=== PATIENT | female | born 1980 | race Caucasian/White ===

== ENCOUNTER → 2022-03-24 08:25 | Outpatient (BNVA) | payer OTHER, SELFPAY | PROVIDERS: PCP Internal Medicine; Visit Provider Internal Medicine Endocrinology, Diabetes & Metabolism | DX: E11.65 Type 2 diabetes mellitus with hyperglycemia (principal) | CPT/HCPCS: 82947 ==

== ENCOUNTER 2022-03-26 08:48 | Outpatient (REF) | payer OTHER, SELFPAY ==
[2022-03-26 11:16] LABS: Anion Gap 18 (12-20); Blood Urea Nitrogen 14 mg/dL (9-16); Calcium 9.3 mg/dL (8.4-10.2); Carbon Dioxide 20 mmol/L (22-29); Chloride 100 mmol/L (96-108); Cholesterol 451 mg/dL; Estimated Glomerular Filt Rate > 60; Glucose Random 254 mg/dL (60-115); HDL Cholesterol 41 mg/dL; Potassium 4.5 mmol/L (3.3-5.1); Sodium 133 mmol/L (135-145)
[2022-03-26 11:20] LABS: Triglycerides 1858 mg/dL
[2022-03-26 11:49] LABS: Creatinine Urine 166.83 mg/dL; Microalbum/Creatinine Ratio Ur 93.5 ug/mg cr
== END 2022-03-26 08:49 | disposition home or self-care (01) ==
LOC: HO.10HDL 08:48
PROVIDERS: Visit Provider Internal Medicine Endocrinology, Diabetes & Metabolism
DX: E11.65 Type 2 diabetes mellitus with hyperglycemia (principal)
CPT/HCPCS: 36415; 80048; 80061; 82043

== ENCOUNTER → 2022-04-02 09:32 | Outpatient (BNVA) | payer OTHER, SELFPAY | PROVIDERS: PCP Internal Medicine; Visit Provider Registered Nurse Diabetes Educator | DX: Z13.89 Encounter for screening for other disorder (principal) ==

== ENCOUNTER → 2022-06-23 10:30 | Outpatient (BNVA) | payer OTHER, SELFPAY | PROVIDERS: PCP Internal Medicine; Visit Provider Internal Medicine Endocrinology, Diabetes & Metabolism | DX: E11.65 Type 2 diabetes mellitus with hyperglycemia (principal) | CPT/HCPCS: 82947; 83036 ==

== ENCOUNTER 2022-06-23 11:46 | Outpatient (REF) | payer OTHER, SELFPAY ==
[2022-06-23 13:46] LABS: Cholesterol 246 mg/dL; HDL Cholesterol 70 mg/dL; LDL Cholesterol Calculated 117 mg/dl; Triglycerides 298 mg/dL
== END 2022-06-23 11:47 | disposition home or self-care (01) ==
LOC: HO.10HDL 11:46
PROVIDERS: Visit Provider Internal Medicine Endocrinology, Diabetes & Metabolism
DX: E78.1 Pure hyperglyceridemia (principal); E11.65 Type 2 diabetes mellitus with hyperglycemia
CPT/HCPCS: 36415; 80061

== ENCOUNTER → 2022-07-02 10:03 | Outpatient (BNVA) | payer OTHER, SELFPAY | PROVIDERS: Visit Provider Dietitian, Registered | DX: E11.65 Type 2 diabetes mellitus with hyperglycemia (principal) | CPT/HCPCS: 97802 ==

== ENCOUNTER → 2022-09-01 14:06 | Outpatient (BNVA) | payer OTHER, SELFPAY | PROVIDERS: Visit Provider Dietitian, Registered | DX: E11.65 Type 2 diabetes mellitus with hyperglycemia (principal); Z71.3 Dietary counseling and surveillance | CPT/HCPCS: 97803 ==

== ENCOUNTER → 2022-09-10 10:04 | Outpatient (BNVA) | payer OTHER, SELFPAY | PROVIDERS: Visit Provider Registered Nurse Diabetes Educator ==

== ENCOUNTER 2022-11-09 14:42 | Outpatient (AMB) | payer OTHER, SELFPAY ==
[2022-11-09 14:46] VITALS: BMI 50.3
--- NOTE | 2022-11-09 14:46 | A.OFFVIS_ITS ---
Intake VS Expanded 11/09/22 14:46 Height 5 ft 5 in Weight 302 lb 0.533 oz BMI 50.3 Intake Visit Reasons: T2DM Allergies calamine Allergy (Verified 11/24/22 11:44) Rash environmental Allergy (Uncoded 06/23/22 10:37) rashes Medication List - Last Reconciled 11/09/22 by Olga Masetrs, RD, LDN blood sugar diagnostic (FreeStyle Lite Strips) As directed tests 4 X/day blood-glucose meter (FreeStyle Gratz Lite kit) As directed checks 4 X/day desogestrel-ethinyl estradiol 0.15-0.03 mg (Enskyce) 1 tab PO DAILY gabapentin 300 mg PO TID lancets (FreeStyle Lancets) As directed checks 4 X/day lancets (FreeStyle Lancets) As directed checks 4 X/day losartan 100 mg PO DAILY metformin ER 2,000 mg PO DAILY metoprolol succinate ER 100 mg PO DAILY multivitamin 1 tab PO DAILY semaglutide (Ozempic) 1 mg (0.75 mL) subcut QWEEK venlafaxine ER 225 mg PO DAILY HPI Nutrition Presentation Details Pt presents for MNT follow-up for type 2 diabetes Patient reports doing well, working on meal planning, mindful eating. Patient reports having had some episodes of GI distress in the month September with persistent diarrhea requiring visit to urgent care. Patient reports she is feeling well and eating well today. Noted weight loss of 15 lb since last visit in August. Patient reports most of the weight loss was during that month and assures she is no longer having GI distress and is feeling comfortable. Patient also reports starting ozempic 1 mg/wk about a month ago, takes metfor min ER 2000 mg/d Patient denies vomiting, denies diarrhea Patient reports having 3 meals/day and 2-3 snacks in between Meals may consist of Breakfast : Scrambled eggs 3 with 2 slices bread or bagel, and water Snack: Protein shake (30 g protein Lunch salad with chicken deli meat or a sandwich with tuna and chips Dinner trying to do protein foods in the slow cooker or may ground beef with pasta and non starchy veggies, drinks water Snack: Some ice cream or cereal with milk or yogurt Reports choosing soft protein foods (is a eggs, poultry, cheese, protein shakes), reports about 120 g of protein per day Patient reports keeping hydrated by having water with each meal and snack Most Recent Diabetes Results: Microalb/Creat Ratio 93.5 ug/mg cr 03/26/22 Cholesterol 246 mg/dL 06/23/22 HDL Cholesterol 70 mg/dL 06/23/22 Triglycerides 298 mg/dL 06/23/22 Creatinine 0.82 mg/dL (0.5-1.4) 03/26/22 Blood Urea Nitrogen 14 mg/dL (9-16) 03/26/22 Sodium 133 mmol/L (135-145) L 03/26/22 Potassium 4.5 mmol/L (3.3-5.1) 03/26/22 Chloride 100 mmol/L (96-108) 03/26/22 Carbon Dioxide 20 mmol/L (22-29) L 03/26/22 Calcium 9.3 mg/dL (8.4-10.2) 03/26/22 [facility] Medical History (Updated 06/23/22 @ 10:53 by Harsh Hinojosa MD) High triglycerides Uncontrolled diabetes mellitus with hyperglycemia, without long-term current use of insulin Surgical History History of carpal tunnel release of both wrists Family History Mother Heart problem COPD (chronic obstructive pulmonary disease) Father Stroke Social History Alcohol intake: current Alcohol intake frequency: holidays/special occasions only Alcohol type: beer Patient Tobacco Use Status: Never used Tobacco Assessment & Plan Assessment & Plan (1) Uncontrolled diabetes mellitus with hyperglycemia, without long-term current use of insulin: Code(s): E11.65 - Type 2 diabetes mellitus with hyperglycemia Plan: Educate Pt on reduction , healthy plate method ? Used wt?:? 142? kg(08/2022) 137 kg (10/2022) Est kcal as per MSJ: 2500- 250 = 2250 (40% carb, 30% fat/prot) Est fluid needs: 3500 ml/d (25 ml/kg bw) Rec fiber:? increase to 8-10 g per day and gradually increase to 25 g/d or? as tolerated? Rec Na: < 2000 mg /d Educate patient on:? (R= Reviewed,? V = verbalizes understanding ? N/R= Needs review? ? N/A= not applicable) * Food sources of carbohydrates and serving adequate serving sizes :??R? * Difference between complex carbohydrates and simple carbohydrates, role of fiber:??R? * Differences between fats (MUFA/PUFA/saturated fats, trans fats) and food sources of various fats:?? N/R * Food sources of sodium and salt and? healthy modifications for heart health and kidney health:? N/R * Vitamins and minerals:??? N/R * How to interpret food labels:???R * Healthy Plate method concept:??R? * Physical activity: benefits and precaution: ??R? (basic) * mindful eating strategies?: R ? Patient Instructions: continue working on healthy eating concepts , following healthy plate method Include fiber rich foods, gradually increasing fiber amount from 4 g up to 18 g or as tolerated may recommend monitoring labs for b12 deficiency related to hx of neuropathy in feet and taking metformin Coding Level of Care Code Nutr Indiv Subseq (27363) Diagnoses Uncontrolled diabetes mellitus with hyperglycemia, without long-term current use of insulin E11.65 Time Spent (min) 30
== END 2022-11-09 15:17 | disposition home or self-care (01) ==
PROVIDERS: Visit Provider Dietitian, Registered
DX: E11.65 Type 2 diabetes mellitus with hyperglycemia (principal)

== ENCOUNTER → 2022-11-09 14:42 | Outpatient (BNVA) | payer OTHER, SELFPAY | PROVIDERS: Visit Provider Dietitian, Registered | DX: E11.65 Type 2 diabetes mellitus with hyperglycemia (principal); Z79.84 Long term (current) use of oral hypoglycemic drugs; Z71.3 Dietary counseling and surveillance | CPT/HCPCS: 97803 ==

== ENCOUNTER 2022-11-24 11:34 | Outpatient (AMB) | payer OTHER, SELFPAY ==
[2022-11-24 11:38] VITALS: BP 112/88; PULSE 92; BMI 49.9
--- NOTE | 2022-11-24 11:38 | MHC.OFFVIS ---
Intake Vital Signs 11/24/22 11:38 Height 5 ft 5 in Weight 300 lb 0.786 oz BMI 49.9 BP 112/88 Blood Pressure Location Lt brachial Position Sitting Pulse 92 Pulse Source Pulse Oximeter Intake Visit Reasons: DM Intake Note: Patient present today to follow up on Type Diabetes Mellitus. Last Diabetic Eye exam: March 2022 Last Podiatry Visit: None Random Glucose: 105 mg/dl HgA1C: 6.8% Ice Guard Skating Rink Required: No Accompanied by: Self / Same As Patient Allergies calamine Allergy (Verified 11/24/22 11:44) Rash environmental Allergy (Uncoded 06/23/22 10:37) rashes HPI HPI Comments History of Present Illness Details 42 YO F who is seen in consultation for T2DM at the request of PCP. Initially diagnosed with T2DM in 2018. Not seen endo before Was initially started on treatment with metformin 2000 mg QD. Tried Januvia with no effect . Jardiance but stopped trigs . Mounjaro was not covered . Tried Bydureon and Byetta . Tried Trulicity but had nausea Current regimen metformin 2000 mg XR QD.. Ozempic 1 mg Qwkly Checks sugars 2 times per day. Glucometer download shows average point care 128 with standard deviation of 21. 94% range with 6% hyperglycemia and no hypoglycemia Family history of T2DM in mother has Type 2 DM . Has eyes checked yearly, last eye exam has app , denies retinopathy. Has neuropathy, not sees podiatry. Denies nephropathy, Not on JOE/ARB. Has HLD, Not on statin. Denies CAD. Not Had diabetes education. [facility] Medical History (Updated 06/23/22 @ 10:53 by Harsh Hinojosa MD) High triglycerides Uncontrolled diabetes mellitus with hyperglycemia, without long-term current use of insulin Surgical History History of carpal tunnel release of both wrists Family History Mother Heart problem COPD (chronic obstructive pulmonary disease) Father Stroke Social History Alcohol intake: current Alcohol intake frequency: holidays/special occasions only Alcohol type: beer Patient Tobacco Use Status: Never used Tobacco Physical Exam Vital Signs: Last Vital Signs Pulse 92 11/24/22 11:38 BP 112/88 11/24/22 11:38 BMI result Body Mass Index 49.9 Absence of Cushingoid features. Absence of acromegalic features. Neck exam reveals nl size thyroid about 15 gms. No thyroid nodules palpable. No carotid bruits present. Lungs CTA. Heart S1 S2, Reg R/R. No M/R/ G. Skin exam reveals absence of vitiligo but presence of acanthosis nigricans. Abdominal exam reveals Soft NT/ND with NA BS. No organomegaly present. Neck Other: . Extrem Other: Visual exam of foot performed. No ulcerations or open lesions. No onchomycosis, no callouses.Pulses 2 + distally Sensation intact to monofilament exam. Vibratory sensation sensed is intact with 128 Hz tuning fork Results AMB Hemoglobin A1c AMB Hemoglobin A1c 6.8 % Last Edit by Lana Calderon on 11/24/22 12:01 Results Reviewed Results Reviewed: 11/24/22 11:48 Glucose, Whole Blood Routine Laboratory Last Values Glucose (Clinic) 105 mg/dL (60-115) 11/24/22 11:48 Hgb A1c (Clinic) 6.8 % (4.0-6.0) H 11/24/22 12:00 Assessment & Plan Assessment & Plan (1) Uncontrolled diabetes mellitus with hyperglycemia, without long-term current use of insulin: Code(s): E11.65 - Type 2 diabetes mellitus with hyperglycemia Plan: This is a 42-year-old white female with a history of diabetes currently being treated with metformin and Mounjaro withe excellent improved glycemic control and no known microvascular or macrovascular complications Plan is to. Increase the Ozempic 2 mg q.week. At this point, patient returned to the care of her primary care provider and return back to endocrinology if A1c deteriorate. (2) High triglycerides: Code(s): E78.1 - Pure hyperglyceridemia Plan: Triglycerides improved but not at goal with improved glycemic control Can talk to PCP about potentially starting a statin. This but effectively lower LDL and might have a positive affect on triglycerides although they have improved with improving glycemic control. If triglycerides become elevated again, consideration could be given to stopping the control pill containing estrogen (3) Neuropathic arthropathy: Code(s): M14.60 - Charcot's joint, unspecified site Orders: Orders AMB Hemoglobin A1c Today E11.65 - Type 2 diabetes mellitus with hyperglycemia Coding Level of Care Code Est Pt Level 4 (93040) Diagnoses Uncontrolled diabetes mellitus with hyperglycemia, without long-term current use of insulin E11.65 High triglycerides E78.1 Neuropathic arthropathy M14.60
[2022-11-24 11:52] LABS: Glucose, Whole Blood 105 mg/dL (60-115)
== END 2022-11-24 12:15 | disposition home or self-care (01) ==
PROVIDERS: Visit Provider Internal Medicine Endocrinology, Diabetes & Metabolism
DX: E11.65 Type 2 diabetes mellitus with hyperglycemia (principal); E78.1 Pure hyperglyceridemia; M14.60 Charcot's joint, unspecified site
CPT/HCPCS: 99214

== ENCOUNTER → 2022-11-24 11:34 | Outpatient (BNVA) | payer OTHER, SELFPAY | PROVIDERS: Visit Provider Internal Medicine Endocrinology, Diabetes & Metabolism | DX: E11.65 Type 2 diabetes mellitus with hyperglycemia (principal); E78.1 Pure hyperglyceridemia; M14.60 Charcot's joint, unspecified site | CPT/HCPCS: 82947; 83036 ==